=== PATIENT | male | born 1980 | race Two or more races ===

== ENCOUNTER 2019-11-30 22:42 | Inpatient (IN) | payer MEDICAID ==
[~2019-11-30] VITALS: Ht 157.5 cm; Wt 73.0 kg
[2019-11-30 23:30] LABS: Basophils # (auto) 0 10 ^3/uL (0-0.2); Basophils % (auto) 0.7 % (0.0-2.0); Eosinophils # (auto) 0.2 10 ^3/uL (0-0.8); Hematocrit 42.5 % (41.0-53.0); Hemoglobin 14.3 g/dL (13.5-17.5); Lymphocytes # (auto) 1.6 10 ^3/uL (0.4-5.4); Lymphocytes % (auto) 23.5 % (10.0-50.0); Mean Corpuscular Hemoglobin 29.5 pg (28.0-32.0); Mean Corpuscular Hgb Conc. 33.6 g/dL (32.0-36.0); Monocytes # (auto) 0.5 10 ^3/uL (0-1.3); Monocytes % (auto) 7.9 % (0.0-12.0); Neutrophils # (auto) 4.4 10 ^3/uL (1.6-8.6); Neutrophils % (auto) 64.9 % (37.0-80.0); Nucleated Red Blood Cells % 0.2 %; Platelet Count (auto) 380 10^3/uL (140-450); Red Blood Cells 4.83 10^6/uL (4.5-5.90); Red Cell Distribution Width 13.7 % (11.8-14.3); White Blood Cell 6.8 10^3/uL (4.4-10.8)
[2019-11-30 23:49] LABS: Albumin 3.8 g/dL (3.4-5.0); BUN/Creatinine Ratio 18.8; Calcium 8.7 mg/dL (8.5-10.1); Potassium 3.9 mmol/L (3.5-5.1)
[2019-11-30 23:58] LABS: Bilirubin, Total 0.2 mg/dL (0.2-1.0); Total Protein 7.7 g/dL (6.4-8.2)
[2019-12-01] MEDS ORDERED: cefTRIAXone 1GM/50ML D5W 50 ML IV ONE (04:30)
[2019-12-01] MEDS ORDERED: ONDANSETRON HCL 4 MG/2 ML VIAL IV PRN (06:45)
[2019-12-01] MEDS ORDERED: DOCUSATE SOD 100 MG CAP PO PRN (06:45)
[2019-12-01] MEDS ORDERED: ACETAMINOPHEN 325 MG TAB PO PRN (06:45)
[2019-12-01 07:55] LABS: Basophils # (auto) 0 10 ^3/uL (0-0.2); Basophils % (auto) 0.5 % (0.0-2.0); Eosinophils # (auto) 0.2 10 ^3/uL (0-0.8); Eosinophils % (auto) 4.4 % (0.0-7.0); Hematocrit 44.2 % (41.0-53.0); Hemoglobin 14.5 g/dL (13.5-17.5); Lymphocytes # (auto) 1.3 10 ^3/uL (0.4-5.4); Lymphocytes % (auto) 25.5 % (10.0-50.0); Mean Corpuscular Hemoglobin 28.9 pg (28.0-32.0); Mean Corpuscular Hgb Conc. 32.9 g/dL (32.0-36.0); Mean Corpuscular Volume 87.7 fL (80.0-100.0); Monocytes # (auto) 0.4 10 ^3/uL (0-1.3); Monocytes % (auto) 8.5 % (0.0-12.0); Neutrophils % (auto) 61.1 % (37.0-80.0); Nucleated Red Blood Cells % 0.4 %; Platelet Count (auto) 342 10^3/uL (140-450); Red Blood Cells 5.04 10^6/uL (4.5-5.90); Red Cell Distribution Width 13.7 % (11.8-14.3); White Blood Cell 4.9 10^3/uL (4.4-10.8)
[2019-12-01] MEDS: SODIUM CHLORIDE 0.9% 1,000 ML IV SCH ×2 (08:00→18:17)
[2019-12-01 08:12] LABS: Calcium 8.7 mg/dL (8.5-10.1); Potassium 3.8 mmol/L (3.5-5.1)
[2019-12-01 13:00] VITALS: BP 108/69
[2019-12-01 13:26] VITALS: BP 108/69
[2019-12-01] MEDS ORDERED: ELVI1TAB5 PO (15:33)
[2019-12-01 17:11] VITALS: BP 109/61
[2019-12-01 20:00] VITALS: BP 94/57
[2019-12-01 22:00] VITALS: BP 94/51
[2019-12-02] VITALS (7 sets, daily range): BP systolic 97–117; BP diastolic 49–75
[2019-12-02] MEDS: SODIUM CHLORIDE 0.9% 1,000 ML IV SCH ×3 (02:45→22:45)
[2019-12-02] MEDS: MORPHINE SULF INJ 2 MG/ML SYRINGE 1ML IV PRN ×4 (05:22→21:15)
[2019-12-02] MEDS ORDERED: GOLYTELY 4L KIT PO ONE (12:00)
[2019-12-03] VITALS (7 sets, daily range): BP systolic 98–118; BP diastolic 58–71
[2019-12-03] MEDS ORDERED: GOLYTELY 4L KIT PO ONE (04:00)
[2019-12-03 07:15] LABS: INR 0.99 (0.9-1.15); Partial Thromboplastin Time 29.2 sec (23.64-32.05)
[2019-12-03 07:36] LABS: Urine Bacteria NONE SEEN /hpf (None Seen); Urine Blood Negative /uL (Negative); Urine Mucus FEW (None Seen); Urine Specific Gravity 1.013 (1.001-1.035); Urine WBC <1 /hpf (0 - 3)
[2019-12-03] MEDS: SODIUM CHLORIDE 0.9% 1,000 ML IV SCH ×2 (08:45→19:05)
[2019-12-03] MEDS ORDERED: SODIUM CHLORIDE LOCK 10 ML ONE (08:51)
[2019-12-03] MEDS ORDERED: diphenhdrAMINE HCL 50 MG/1 ML VL ONE (08:51)
[2019-12-03] MEDS: fentaNYL CITRATE 100 MCG/2 ML VL ONE ×2 (12:25→12:28)
[2019-12-03] MEDS: MIDAZOLAM HCL 5 MG/ML-1ML VIAL ONE ×2 (12:25→12:28)
[2019-12-03] MEDS ORDERED: MIDAZOLAM HCL 5 MG/ML-1ML VIAL ONE (12:30)
[2019-12-03] MEDS ORDERED: fentaNYL CITRATE 100 MCG/2 ML VL ONE (12:30)
[2019-12-03] MEDS: MORPHINE SULF INJ 2 MG/ML SYRINGE 1ML IV PRN (21:22)
[2019-12-04] MEDS: SODIUM CHLORIDE 0.9% 1,000 ML IV SCH ×2 (04:45→14:45)
[2019-12-04 05:00] VITALS: BP 110/56
[2019-12-04 06:24] LABS: Basophils # (auto) 0 10 ^3/uL (0-0.2); Basophils % (auto) 0.7 % (0.0-2.0); Eosinophils # (auto) 0.2 10 ^3/uL (0-0.8); Eosinophils % (auto) 4.1 % (0.0-7.0); Hematocrit 40.3 % (41.0-53.0); Hemoglobin 13.7 g/dL (13.5-17.5); Lymphocytes # (auto) 1.2 10 ^3/uL (0.4-5.4); Lymphocytes % (auto) 25.6 % (10.0-50.0); Mean Corpuscular Hemoglobin 29.8 pg (28.0-32.0); Mean Corpuscular Hgb Conc. 34.1 g/dL (32.0-36.0); Mean Corpuscular Volume 87.3 fL (80.0-100.0); Monocytes # (auto) 0.4 10 ^3/uL (0-1.3); Monocytes % (auto) 7.6 % (0.0-12.0); Neutrophils # (auto) 2.9 10 ^3/uL (1.6-8.6); Nucleated Red Blood Cells % 0.1 %; Platelet Count (auto) 332 10^3/uL (140-450); Red Blood Cells 4.61 10^6/uL (4.5-5.90); Red Cell Distribution Width 13.7 % (11.8-14.3); White Blood Cell 4.7 10^3/uL (4.4-10.8)
[2019-12-04 06:49] LABS: BUN/Creatinine Ratio 21.1; Calcium 8.6 mg/dL (8.5-10.1)
[2019-12-04] MEDS ORDERED: OMNIPAQUE ORAL SOLN 500ml 12mg/ml PO ONE (07:46)
[2019-12-04] MEDS ORDERED: IOHEXOL 300 MG/ML 100ML BOTTLE IJ ONE (07:46)
[2019-12-04 08:16] VITALS: BP 96/57
[2019-12-04] MEDS: MORPHINE SULF INJ 2 MG/ML SYRINGE 1ML IV PRN ×2 (09:28→16:36)
[2019-12-04 12:43] VITALS: BP 123/96
[2019-12-04] MEDS ORDERED: GADOTERIDOL 279.3mg/mL 20ml Vial IV ONE (14:03)
[2019-12-04 17:25] VITALS: BP 96/63
[2019-12-04 22:00] VITALS: BP 108/64
[2019-12-05] MEDS: SODIUM CHLORIDE 0.9% 1,000 ML IV SCH (00:45)
[2019-12-05 05:00] VITALS: BP 101/62
[2019-12-05 06:40] LABS: Basophils # (auto) 0 10 ^3/uL (0-0.2); Basophils % (auto) 0.7 % (0.0-2.0); Eosinophils # (auto) 0.2 10 ^3/uL (0-0.8); Eosinophils % (auto) 3.8 % (0.0-7.0); Hematocrit 42.2 % (41.0-53.0); Hemoglobin 14.2 g/dL (13.5-17.5); Lymphocytes # (auto) 1.2 10 ^3/uL (0.4-5.4); Lymphocytes % (auto) 26.6 % (10.0-50.0); Mean Corpuscular Hemoglobin 29.5 pg (28.0-32.0); Mean Corpuscular Hgb Conc. 33.7 g/dL (32.0-36.0); Mean Corpuscular Volume 87.6 fL (80.0-100.0); Monocytes # (auto) 0.4 10 ^3/uL (0-1.3); Monocytes % (auto) 8.6 % (0.0-12.0); Neutrophils # (auto) 2.8 10 ^3/uL (1.6-8.6); Neutrophils % (auto) 60.3 % (37.0-80.0); Platelet Count (auto) 344 10^3/uL (140-450); Red Blood Cells 4.82 10^6/uL (4.5-5.90); Red Cell Distribution Width 13.9 % (11.8-14.3); White Blood Cell 4.6 10^3/uL (4.4-10.8)
[2019-12-05 06:58] LABS: BUN/Creatinine Ratio 15.6; Calcium 9.1 mg/dL (8.5-10.1); Potassium 4.3 mmol/L (3.5-5.1)
[2019-12-05] MEDS: HYDROcodone-ACET 5/325MG TAB PO PRN (08:06)
[2019-12-05 09:00] VITALS: BP 112/71
[2019-12-05] MEDS: MORPHINE SULF INJ 2 MG/ML SYRINGE 1ML IV PRN ×3 (10:08→21:48)
[2019-12-05 12:30] VITALS: BP 128/79
[2019-12-05 16:42] VITALS: BP 111/65
[2019-12-05] MEDS: metroNIDAZOLE 500 MG TAB PO SCH ×2 (17:10→21:48)
[2019-12-05] MEDS: CIPROFLOXACIN 400MG/200ML 200 ML IV SCH ×2 (17:11→21:48)
[2019-12-05 22:00] VITALS: BP 129/76
[2019-12-06 05:00] VITALS: BP 126/64
[2019-12-06] MEDS: metroNIDAZOLE 500 MG TAB PO SCH ×3 (05:52→21:37)
[2019-12-06 08:25] VITALS: BP 104/58
[2019-12-06] MEDS: CIPROFLOXACIN 400MG/200ML 200 ML IV SCH (10:50)
[2019-12-06] MEDS: HYDROcodone-ACET 5/325MG TAB PO PRN (11:21)
[2019-12-06 12:30] VITALS: BP 99/58
[2019-12-06 16:20] VITALS: BP 120/70
[2019-12-06] MEDS: levoFLOXacin 500 MG TAB PO SCH (21:37)
[2019-12-06 22:00] VITALS: BP_SYST 106; BP_SYST 150; BP_DIAS 67; BP_DIAS 74
[2019-12-06] MEDS: MORPHINE SULF INJ 2 MG/ML SYRINGE 1ML IV PRN (22:16)
[2019-12-07 05:00] VITALS: BP 100/59
[2019-12-07] MEDS: metroNIDAZOLE 500 MG TAB PO SCH ×3 (05:48→22:19)
[2019-12-07 09:00] VITALS: BP 125/64
[2019-12-07] MEDS: levoFLOXacin 500 MG TAB PO SCH (10:05)
[2019-12-07 13:00] VITALS: BP 102/58
[2019-12-07 17:00] VITALS: BP 130/76
[2019-12-07 21:30] VITALS: BP 102/68
[2019-12-08 01:45] VITALS: BP 108/65
[2019-12-08] MEDS: HYDROcodone-ACET 5/325MG TAB PO PRN (01:55)
== END 2019-12-08 02:27 | disposition short-term general hospital (02) | DRG 254 ==
LOC: ER 22:42 → OVERFLOW 22:43 → ER 12-01 00:44 → WEST WING 12-01 12:43
PROVIDERS: ADMIT Hospitalist; ATTEND Internal Medicine Nephrology
PROC: 0DJD8ZZ Inspection of Lower Intestinal Tract, Via Natural or Artificial Opening Endoscopic (ICD-10-PCS; principal; 2019-12-03 12:20)
DX: K60.3 Anal fistula (principal); E78.5 Hyperlipidemia, unspecified; K62.5 Hemorrhage of anus and rectum; L05.01 Pilonidal cyst with abscess; F32.9 Major depressive disorder, single episode, unspecified; F41.9 Anxiety disorder, unspecified; Z83.3 Family history of diabetes mellitus; Z82.49 Family history of ischemic heart disease and other diseases of the circulatory system; Z03.818 Encounter for observation for suspected exposure to other biological agents ruled out; Z21 Asymptomatic human immunodeficiency virus [HIV] infection status
CPT/HCPCS: 36415; 45378; 73723; 74177; 80048; 80053; 80061; 81001; 83036; 85025; 85610; 85730; 87081; 96365; G0378; J0696; J2250; J2405